=== PATIENT | female | born 1980 | race Two or more races ===

== ENCOUNTER 2024-10-19 17:05 | Emergency (ER) | payer MEDICAID, SELFPAY ==
--- NOTE | 2024-10-19 17:20 | PC.NURSE ---
no answer in lobby when called for vital signs
--- NOTE | 2024-10-19 17:45 | PC.NURSE ---
no answer in lobby when called for vital signs
--- NOTE | 2024-10-19 18:20 | PC.NURSE ---
no answer in lobby when called for room in ed
== END 2024-10-19 17:15 | disposition left against medical advice (07) ==
LOC: SERX 18:25
PROVIDERS: Emergency Provider Emergency Medicine
DX: Z53.21 Procedure and treatment not carried out due to patient leaving prior to being seen by health care provider (principal)

== ENCOUNTER 2025-04-26 15:11 | Emergency (ER) | payer MEDICAID, SELFPAY ==
[2025-04-26 15:26] VITALS: BP 131/85; PULSE 79; RESP 17; TEMP 36.6; O2SAT 97
--- NOTE | 2025-04-26 15:29 | PD.EDDENTL ---
ED Dental RME/HPI General Chief complaint: Dental/Oral/Throat Stated complaint: TOOTH PAIN X3 DAYS, NEEDS PAIN MEDS Time Seen by Provider: 04/26/25 15:15 Arrival date/time: 04/26/25 15:11 44-year-old female presents to the emergency department for complaints of tooth pain ongoing x 3 days patient reports that she saw dentist they put her on clindamycin patient reports that the dentist told her that she has pain to go to the ER for further evaluation and treatment Limitations: no limitations Related Data Previous Rx's ?Medication ?Instructions ?Recorded nitrofurantoin 100 mg PO BID #14 caps 01/24/20 monohydrate/macrocrystals 100 mg capsule (Macrobid) tamsulosin 0.4 mg capsule (Flomax) 0.4 mg PO QDAY #10 caps 01/24/20 hydroxyzine HCl 50 mg tablet 50 mg PO Q8H PRN anxiety #30 tabs 02/05/24 hydrocodone 5 mg-acetaminophen 325 1 tab PO BID PRN pain #10 tabs 04/26/25 mg tablet Allergies Allergy/AdvReac Type Severity Reaction Status Date / Time No Known Allergies Allergy Verified 04/26/25 15:16 Review of Systems Review of Systems Systems Reviewed: All systems reviewed, normal except as documented Constitutional Constitutional: Reports system reviewed and no additional complaints, except as documented, Denies fever(s) and Denies headache(s) Eyes Eyes: Reports system reviewed and no additional complaints, except as documented and Denies blurry vision ENT Ears, Nose, Mouth, and Throat: Reports system reviewed and no additional complaints, except as documented, Denies headache(s), Denies nasal congestion, Denies nasal discharge and Reports other (Left upper dental pain) Cardiovascular Cardiovascular: Reports system reviewed and no additional complaints, except as documented, Denies chest pain and Denies dyspnea Respiratory Respiratory: Reports system reviewed and no additional complaints, except as documented, Denies chest congestion, Denies cough and Denies dyspnea Gastrointestinal Gastrointestinal: Reports system reviewed and no additional complaints, except as documented and Denies abdominal pain Integumentary/Breasts Skin/Breast: Reports system reviewed and no additional complaints, except as documented and Denies rash Neurologic Neurologic: Reports system reviewed and no additional complaints, except as documented, Reports as per HPI and Denies headache(s) Past Medical History Past Medical History CARDIAC: Negative Congestive Heart Failure RESPIRATORY: Negative Chronic Obstructive Pulmonary Disease (COPD) GENITOURINARY: Negative Renal Disease ENDOCRINE: Negative Diabetes Mellitus Type 1 or Diabetes Mellitus Type 2 PSYCHO/SOCIAL: Positive Anxiety Social History SMOKING STATUS: Never smoker SUBSTANCE USE: does not use ED Exam General Limitations: Present no limitations General appearance: Present alert and in no apparent distress Head Head exam: Present atraumatic Eye Eye exam: Present normal appearance, PERRL and EOMI ENT ENT exam: Present mucous membranes moist and other (Left upper dental pain) Neck Neck exam: Present normal inspection, full ROM and trachea midline Chest Chest inspection: Present normal inspection and symmetric chest wall rise Respiratory Respiratory exam: Present normal lung sounds bilaterally Cardiovascular Cardiovascular exam: Present regular rate, normal rhythm and normal heart sounds Abdominal Exam Abdominal exam: Present soft and normal bowel sounds Extremities Exam Extremities exam: Present normal inspection and full ROM Back Exam Back exam: Present normal inspection and full ROM Neurological Exam Neurological exam: Present alert, oriented X3 and CN II-XII intact Psychiatric Psychiatric exam: Present normal affect and normal mood Skin Skin exam: Present warm, dry, intact and normal color Course Quality Measures none Vital Signs Vital signs: Vital Signs Temperature 97.8 F 04/26/25 15:26 Pulse Rate 79 04/26/25 15:26 Respiratory Rate 17 04/26/25 15:26 Blood Pressure 131/85 H 04/26/25 15:26 Pulse Oximetry (%) 97 04/26/25 15:26 Oxygen Delivery Method Room Air 04/26/25 15:26 O2 saturation 97% room air within normal limits Dental / Oral MDM Narrative MDM Narrative:: 44-year-old female presents to the emergency department for complaints of tooth pain ongoing x 3 days patient reports that she saw dentist they put her on clindamycin patient reports that the dentist told her that she has pain to go to the ER for further evaluation and treatment On exam patient well-appearing patient does not appear NO acute distress patient does have poor dentition reveals report that she needs a root canal Patient discharged home with a prescription for [place] Patient discharged home in no distress to follow-up with primary care doctor in the next 24 to 48 hours and for any worsening symptoms to return to the ER immediately Patient data External records reviewed:: [facility] previous records Clinical information provided by:: patient Social determinants that could affect healthcare access:: none Patient has the following chronic illnesses:: None How is presenting disease/condition affected by chronic disease/condition?: no chronic disease Evaluation data The following diagnostics were reviewed and interpreted by me:: other (specify) (N/A) Lab and/or radiology exams considered but not ordered:: Considered not ordered Interpretation Summary: N/A Medications / Prescriptions Medications or Prescriptions considered but not ordered:: Given Medication administrations:: Given Consultations Consultation(s) initiated? (list below): No Diagnosis Dental Differential Diagnosis: gingival abscess, dental caries and toothache Most likely diagnosis given after review of the tests above:: Dental pain Admission Indicated Admission indicated?: not indicated Admission Request Was there a request for admission?: No Disposition Plan Disposition Plan: Discharge Discharge Attestation Discharge Attestation: The patient and all family members were given an opportunity to ask questions and understood the discharge instructions. Discharge instructions specifically effects, indications for sooner follow up or return to the emergency department, and the expected course of current diagnosis. Patient condition: Stable Discharge Plan Plan Patient Disposition: HOME (Self Care) Discharge Disposition comment: Stable Prescriptions/Referrals Prescriptions/Med Rec: New hydrocodone-acetaminophen 5-325 mg tablet 1 tab PO BID MDD 10 PRN (Reason: pain) Qty: 10 0RF No Action nitrofurantoin monohyd/m-cryst [Macrobid] 100 mg capsule 100 mg PO BID Qty: 14 0RF Rx Instructions: must administer with a meal/food tamsulosin [Flomax] 0.4 mg capsule 0.4 mg PO QDAY Qty: 10 0RF hydroxyzine HCl 50 mg tablet 50 mg PO Q8H PRN (Reason: anxiety) Qty: 30 0RF Problem List Clinical Impression: Dental abscess Patient/Caregiver Discharge Instructions Education Materials: ED Dental Abscess Additional Instructions: Please follow up with your primary care doctor in the next 24-48hrs for any worsening symptoms return here immediately Print Language: Greek Stand Alone Forms: [facility] Award Info., Patient Portal Info Letter PA/CONSTRUCTION SCHEDULER Supervising Physician PA/CONSTRUCTION SCHEDULER Supervising Physician: Dr. Fagan
== END 2025-04-26 16:54 | disposition home or self-care (01) ==
PROVIDERS: Emergency Provider Family Medicine; PCP Family Medicine
DX: K04.7 Periapical abscess without sinus (principal)
CPT/HCPCS: 99281

== ENCOUNTER 2025-05-29 07:10 | Day surgery (SDC) | payer MEDICAID, SELFPAY ==
[2025-05-28 11:50] VITALS: BMI 29.0
[2025-05-28 14:38] LABS: HCG Qualitative,Urine Negative
[2025-05-29] VITALS (8 sets, daily range): BP systolic 117–144; BP diastolic 85–99; PULSE 66–80; RESP 12–18; TEMP 36.1–36.6; O2SAT 94–98; BMI 29.5
[2025-05-29] MEDS: SODIUM CHLORIDE 0.9% 500 ML 500 ML 20 ML IV (08:32)
[2025-05-29] MEDS: SIMETHICONE 40 MG/0.6 ML ORAL SYRINGE PO (08:43)
--- NOTE | 2025-05-29 08:51 | SUR.PHASEII ---
0851 patient into recovery room with no acute distress noted, v/s stable, patient denies pain and nausea at this time. Patient awakens upon name calling and drifts back to sleep. report received from Maddi POLLARD.
--- NOTE | 2025-05-29 09:12 | SUR.PHASEII ---
patient resting comfortably, no complaints of pain or nausea. patient passing large amounts of flatus.
--- NOTE | 2025-05-29 09:32 | SUR.PHASEII ---
patient getting dressed to go home. Leon patient's called for parts picker.
--- NOTE | 2025-05-29 09:39 | SUR.PHASEII ---
patient in wheelchair, waiting for ignacio to arrive for discharge.
--- NOTE | 2025-05-29 09:56 | SUR.PHASEII ---
D/C INSTRUCTIONS GIVEN TO PATIENT AND PATIENT'S DAUGHTER PITA. DAUGHTER VERBALIZES UNDERSTANDING. PATIENT D/C HOME.
== END 2025-05-29 09:56 | disposition home or self-care (01) ==
PROVIDERS: PCP Family Medicine; Referring Provider Surgery; Visit Provider Surgery
PROC: 0DJD8ZZ Inspection of Lower Intestinal Tract, Via Natural or Artificial Opening Endoscopic (ICD-10-PCS; CPT 45378; principal; 2025-05-29 08:00)
DX: K64.0 First degree hemorrhoids (principal); K62.89 Other specified diseases of anus and rectum; R19.4 Change in bowel habit
CPT/HCPCS: 45378; 81025; A4649; J1200; J2250; J3010; J7999; A9270